=== PATIENT | female | born 1990 | race Caucasian/White ===

== ENCOUNTER → 2021-07-02 | Outpatient (CLI) | payer OTHER ==
[~2021-07-02] MED LIST: IBUP600T; VICO5TAB
== END ==
LOC: M WHC 07:02
PROVIDERS: ATTEND Obstetrics & Gynecology Obstetrics
DX: Z34.82 Encounter for supervision of other normal pregnancy, second trimester (principal); Z3A.18 18 weeks gestation of pregnancy

== ENCOUNTER → 2021-10-15 | Outpatient (CLI) | payer OTHER | LOC: M WHC 12:20 | PROVIDERS: ATTEND Obstetrics & Gynecology Obstetrics | DX: Z36.89 Encounter for other specified antenatal screening (principal); O44.43 Low lying placenta NOS or without hemorrhage, third trimester; Z3A.33 33 weeks gestation of pregnancy ==

== ENCOUNTER → 2025-03-25 | Outpatient (CLI) | payer OTHER, SELFPAY | LOC: M RAD 09:57 | PROVIDERS: ATTEND Chiropractor | DX: M25.551 Pain in right hip (principal) ==